=== PATIENT | female | born 1960 | race Caucasian/White ===

== ENCOUNTER 2016-07-20 09:02 | Inpatient (IN) | payer BC ==
--- NOTE | ~2016-07-20 | HP ---
Unit #: [id number] #: [id number] Patient: JUN VANG [id number] [address] [place], [place] [address] [id number] I MR#: [id number] NAME: JUN VANG ROOM: 05566 Age: 56 Sex: F Admission Date: 07/20/2016 : 1960 Attending Physician: Faisal Pickens M.D. Primary Care Physician: Kulwinder Montano M.D. HISTORY AND PHYSICAL HISTORY OF PRESENT ILLNESS This is a 56-year-old white female with history of breast cancer, status post lumpectomy, radiation therapy currently on tamoxifen, history of hypertension currently on no medication, history of osteoarthritis on Voltaren, started having lower abdominal cramps, bloody diarrhea about 2 weeks ago. She has had a prior colonoscopy times 2 with the last one being about 2 years ago, both normal. She called the GI specialist that she had seen in the past but was unable to get in for 3 weeks and actually has an appointment about 8 days out but her symptoms got worse and she presented herself to the emergency room. Here she was afebrile, tachycardic, initial hemoglobin was 12.7 but quickly dropped to 10.6. On review of systems, she has had no recent antibiotics. No recent ill contacts. No recent travel. She does have a father who has recently been in a rehab center so there is always possible exposure to infectious diseases from that center but she has had no fever. She has had some nausea but no vomiting. She is admitted for further evaluation. PAST MEDICAL HISTORY 1. History of hypertension. 2. Breast cancer. 3. Allergic rhinitis. 4. Osteoarthritis. PAST SURGICAL HISTORY 1. Nose surgery. 2. Tonsillectomy. 3. Lumpectomy. HOME MEDICATIONS 1. Tamoxifen 20 mg daily. 2. Diclofenac 75 mg b.i.d. ALLERGIES No known drug allergies. SOCIAL HISTORY Nonsmoker, nondrinker. No street drug use. . Employed part-time. FAMILY HISTORY Noncontributory. Unit #: [id number] #: [id number] Patient: JUN VANG PHYSICAL EXAMINATION VITAL SIGNS: Temperature afebrile, pulse originally 113, now 93; respirations 16, now 24; blood pressure times 1 was 128/64; O2 saturation 100% on room air. HEENT: Unremarkable. NECK: Supple without JVD, bruits, adenopathy, or thyromegaly. LUNGS: Clear to auscultation. HEART: Regular rate and rhythm without murmurs, rubs, or gallops. ABDOMEN: Soft, nondistended, nontender with positive bowel sounds and no hepatosplenomegaly. EXTREMITIES: No clubbing, cyanosis, or edema. : Deferred. RECTAL: Deferred. NEUROLOGIC: Grossly intact. DIAGNOSTIC STUDIES LABORATORY: CMP is normal except for albumin of 3.0 and a calcium of 8.3. CBC was normal with an original hemoglobin of 12.7 and then 10.6. IMPRESSION 1. Hematochezia. 2. Diarrhea. 3. Osteoarthritis. 4. History of hypertension. 5. History of breast cancer, status post lumpectomy and radiation therapy currently on tamoxifen. PLAN 1. Hold medications. 2. Consult Gastroenterology for endoscopy. 3. IV fluids. 4. IV Flagyl for possible infectious etiology. 5. Stool for C difficile toxin. 6. IV proton pump inhibitors in case this is an upper GI bleed but all her symptoms point to lower GI bleeding which may include but not limited to colitis, diverticulitis, colonic ulcer or even ischemic colitis because of her Voltaren. All discussed with the patient at length. 7. Ordered serial hemoglobin and hematocrit to call with hemoglobin less than 8 at which time she will be transfused. 8. Otherwise will follow up after endoscopy. Dictated by Ketty Santillan/ashvin TD: 07/20/2016 18:41 JOB #: [id number] Unit #: [id number] #: [id number] Patient: JUN VANG HISTORY AND PHYSICAL Page 1 of 1 X Faisal Pickens MD X HISTORY AND PHYSICAL
--- NOTE | ~2016-07-20 | OR ---
Unit #: [id number] #: [id number] Patient: JUN VANG [id number] [address] [place], [place] [address] [id number] I MR#: [id number] NAME: JUN VANG ROOM: 223 Date of Procedure: 07/21/2016 Admission Date: 07/20/2016 Surgeon: Joaquim Salinas M.D. : 1960 Attending Physician: Faisal Pickens M.D. Primary Care Physician: Kulwinder Montano M.D. OPERATIVE REPORT PRIMARY CARE PHYSICIAN Kulwinder Montano M.D. PREOPERATIVE DIAGNOSIS The patient presented with history of diarrhea with blood and mucus. PROCEDURES PERFORMED Upper gastrointestinal endoscopy and biopsy as well as colonoscopy with biopsies. POSTOPERATIVE DIAGNOSES 1. For upper endoscopy, completely normal examination up to third part of duodenum. Biopsies obtained from the deep descending duodenal folds to look for any evidence of partial villous atrophy or celiac disease. 2. For colonoscopy, the patient had diffuse ulcerative pancolitis with continuous symmetric involvement from rectosigmoid all the way up to cecum without any skip areas. There was diffuse granularity, ulceration, and friability throughout the entire colon. Biopsies obtained from the entire colonic mucosa and sent for histology in separate bottles. The terminal ileum was normal. RECOMMENDATIONS 1. We will obtain stool studies for enteric pathogens including Salmonella, Shigella, and Campylobacter as well as C diff toxin. 2. These are negative of the stool studies have been sent. The patient will be started on Solu-Medrol 80 mg IV q.6 hours. 3. We will obtain C-reactive protein, CBC, and CMP in the morning. 4. Diet as tolerated. SEDATION USED MAC. DESCRIPTION OF PROCEDURE Following detailed explanation of potential risks and complications of an upper endoscopy and a colonoscopy, namely perforation, bleeding, and complications related to sedation, the patient was brought to the GI lab and laid in the left lateral decubitus position. Lubricated tip of the Olympus video upper endoscope was passed through the bite block into the proximal esophagus under direct vision. The entire esophageal mucosa was examined and appeared normal. Z-line was nicely demarcated, there being no esophagitis or hiatus hernia. The scope was then advanced into the gastric cavity and the latter was insufflated. Mucosa of the fundus, Unit #: [id number] #: [id number] Patient: SPRINKLE,JUN body, and antrum examined and appeared unremarkable. Pylorus was intubated with visualization of normal duodenum bulb and second and third part of the duodenum. Upon withdrawal and retroflexion, incisura, cardia, and greater curve examined and no additional findings noted. Biopsies were obtained from the deep descending duodenal folds to look for any evidence of partial villous atrophy or celiac disease. The scope was then withdrawn the distal esophagus. The entire esophageal mucosa was examined all the way up to pharynx and no additional findings noted. The examination table was then turned by 180 degrees and the patient positioned for a colonoscopy. A digital rectal examination was performed, which was normal. Lubricated tip of the Olympus video colonoscope was inserted through the anus and advanced under direct vision. The scope was advanced and passed up to sigmoid into descending colon. The patient was noted to have diffuse colitis from rectosigmoid all the way up to cecum. The scope tip was then navigated all the way up to cecum with visualization of the ileocecal valve and the appendiceal orifice. The changes of diffuse colitis were quite obvious with diffuse granularity, ulceration, friability, erythema. There was no cobblestoning and no skip areas. Last few inches of the terminal ileum also visualized after intubation of the ileocecal valve and appeared normal. Biopsies obtained from the terminal ileum as well as from the cecum and right colon, transverse colon, descending colon, and rectosigmoid and sent in separate bottles for histology. Successive segments of the colonic mucosa were examined upon withdrawal and no additional findings noted. The patient did not have any polyps nor any diverticula or hemorrhoids. The scope was then withdrawn. The patient returned to recovery area. The patient tolerated the procedure without any postprocedure complications. Dictated by... Ketty Jean TD: 07/23/2016 03:26 JOB #: [id number] OPERATIVE REPORT Page 1 of 1 X Joaquim Salinas MD X PROCEDURE OPERATIVE NOTE
--- NOTE | ~2016-07-20 | CO ---
Unit #: [id number] #: [id number] Patient: JUN ZARATE [id number] [address] [place], [place] [address] [id number] I MR#: [id number] NAME: JUN ZARATE ROOM: 223 Age: 56 Sex: F Admission Date: 07/20/2016 : 1960 Attending Physician: Faisal Pickens M.D. Primary Care Physician: Kulwinder Montano M.D. Consultation Date: 07/21/2016 CONSULTATION REPORT REASON FOR CONSULTATION Hematochezia and upper abdominal pain. HISTORY Ms. Zarate is a very pleasant 56-year-old white female. Patient was examined while is at the bedside. For the past several weeks she has been having intermittent episodes of bloody diarrhea, several times a day, up to 8-10 times a day, along with blood in the bowel movement. She also has nocturnal awakening, going to bathroom several times. She also mentions a history of cramping in the abdomen, mostly in the lower abdomen, but also points to the upper abdomen. But her appetite is unchanged and she denies any weight loss. There is no history of fever, chills, or rigors. She apparently has had two colonoscopies, the last one being about two years ago and this was normal. There is a history of colonic polyps in the past. PAST MEDICAL HISTORY Significant for history of hypertension, allergic rhinitis, osteoarthritis, and breast cancer. Previous surgeries include a lumpectomy, tonsillectomy and nose surgery. MEDICATIONS AT HOME Diclofenac and tamoxifen. ALLERGIES She has no known drug allergies. 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 Does not smoke or drink alcohol. . Lives at home. 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 FAMILY HISTORY Mother also had breast cancer. No family history of colon, pancreatic cancer of liver disease. REVIEW OF SYSTEMS A detailed review of organ system does not reveal any recent weight loss. No history of fevers, chills or rigors. No history of cough, expectoration, or hemoptysis. No history of dysuria, hematuria or pyuria. No history of focal seizures or extremity weakness. No history of skin rash, aphthous ulcers in the mouth or reactive arthritis. PHYSICAL EXAMINATION Unit #: [id number] #: [id number] Patient: JUN ZARATE GENERAL: She is alert and oriented, and appears comfortable. VITAL SIGNS: Stable. Temperature 98.9, pulse 92 per minute, respiratory rate 18, blood pressure 110/58. She weighs 144 pounds. Her baseline weight is about the same. HEENT: She has mild pallor, there being no icterus, lymphadenopathy or peripheral edema. CARDIOVASCULAR: Normal heart sounds. No murmurs on auscultation. LUNGS: Revealed normal breath sounds. Good air entry. ABDOMEN: Soft and nontender. Liver and spleen are not palpable, and bowel sounds normal. DIAGNOSTIC STUDIES LABORATORY EVALUATION: Shows a hemoglobin of 12.7 yesterday and 10.4 today, white count is normal and platelet count is normal. Serum chemistry shows a BUN and creatinine which are normal, albumin is 3.0. LFTs are normal. CLINICAL IMPRESSION The differential diagnosis here includes internal hemorrhoids, more likely ulcerative colitis, as patient is having frequent bowel movements, along with the bleeding. In view of the fact that her pain is present in the left and right lower abdomen, as well as in the epigastric ulcer, also suggest doing an upper endoscopy at this same time, as colonoscopy is being performed. The pros and cons of the procedures, and potential risks and complications were discussed with the patient and she was reassured. Thank you for asking me to see this pleasant male. Dictated by... Ketty Jean TD: 07/21/2016 12:12 JOB #: [id number] CONSULTATION REPORT Page 1 of 1 X Joaquim Salinas MD CONSULTATION REPORT
--- NOTE | ~2016-07-20 | DS ---
Unit #: [id number] #: [id number] Patient: JUN VANG [id number] [address] [place], [place] [address] [id number] I MR#: [id number] NAME: JUN VANG ROOM: 223 Age: 56 Sex: F Admission Date: 07/20/2016 : 1960 Discharge Date: 07/23/2016 Attending Physician: Faisal Pickens M.D. Primary Care Physician: Kulwinder Montano M.D. DISCHARGE SUMMARY PRINCIPAL DISCHARGE DIAGNOSES 1. Moderate to severe ulcerative pancolitis. 2. Hematochezia secondary to number one. 3. Anemia. 4. Osteoarthritis. 5. History of breast cancer. 6. Hyperglycemia, likely secondary to steroids. 7. History of hypertension. Currently on no treatment for same. PROCEDURES PERFORMED Colonoscopy with biopsy on 07/21/2016. CONSULTANTS Dr. Joaquim Salinas. REASON FOR HOSPITALIZATION The patient is a 56-year-old white female with a history of breast cancer, status post lumpectomy, radiation, on tamoxifen. History of hypertension, currently on no medications. History of arthritis on Voltaren. The patient presented with lower abdominal cramps, bloody diarrhea for about two weeks. She had had a prior colonoscopy times two, the last one being about two years ago, both being normal. In the emergency room she was afebrile and tachycardic. Initial hemoglobin was 12.7, but quickly dropped to 10.6 and she was admitted. HOSPITAL COURSE The patient was made n.p.o. She was started on IV Flagyl. Stool for c-diff was ordered. Serial hemoglobin and hematocrit were followed. She was started on an IV proton pump inhibitor, SCDs for DVT prophylaxis. GI was consulted. The patient underwent endoscopy on the fourth, showing pancolitis. Biopsies were obtained, but still pending at the time of dictation. C-reactive protein was 2.1. Hemoglobin fell to about 10.5 and stayed stable thereafter. She had a random blood sugar on the . Hemoglobin A1C was checked and it was 5.4. In any case, her endoscopy showed fink colitis as mentioned above. Stool for Shigatoxin was negative. Stool for campylobacter negative. Stool for c-diff toxin negative. The patient was treated with IV Flagyl, IV Solu-Medrol, markedly improved. Hemoglobin stable. Vital signs stable. DISPOSITION Being discharged home. DISCHARGE MEDICATION 1. It is okay to resume her Tamoxifen, but hold the Voltaren. Unit #: [id number] #: [id number] Patient: JUN VANG 2. She was given prescriptions for Flagyl 500 mg t.i.d. for 5 days, prednisone 40 mg for 10 days, 30 mg for 10 days, 20 mg for 10 days and then 10 mg for 10 days. 3. Prescription for Asacol 400 mg 3 tablets p.o. t.i.d. To start on 07/31/2016. FOLLOWUP 1. She needs a followup with Dr. Montano in one week from discharge with a CBC. 2. She is to follow up with Dr. Salinas on Wednesday at 2:30 p.m. Dictated by... Faisal Pickens M.D. PIPOK/amarilis TD: 07/24/2016 08:14 JOB #: [id number] DISCHARGE SUMMARY Page 1 of 1 X Faisal Pickens MD X DISCHARGE SUMMARY
[2016-07-20 08:25] LABS: BASOPHIL% 0.3 % (0-2.5); EOSINOPHIL# 0.9 X10e3 (0-0.7); HEMATOCRIT 38.4 % (35.0-45.0); HEMOGLOBIN 12.7 gm/dL (12.0-16.0); LYMPHOCYTE# 0.7 X10e3 (1.0-3.5); LYMPHOCYTE% 8.6 % (17.0-45.0); MEAN CELL VOLUME 93.7 FL (83-96); MEAN CORPUSCULAR HEMOGLOBIN 30.9 PG (28-34); MEAN PLATELET VOLUME 6.6 FL (6.5-11.5); MONOCYTE# 0.8 X10e3 (0-1.0); MONOCYTE% 9.9 % (3.0-12.0); NEUTROPHIL% 70.2 % (40-75); PLATELET COUNT 410 X10e3 (140-420); RED CELL DISTRIBUTION WIDTH 13.2 % (11.0-15.5); WHITE BLOOD COUNT 8.5 X10e3 (4.0-10.5)
[2016-07-20 08:28] LABS: DIFF IND NO
[2016-07-20 08:49] LABS: BILIRUBIN, DIRECT 0.1 mg/dL (0.0-0.2); BILIRUBIN,INDIRECT 0.5 mg/dL (0.0-0.9); BILIRUBIN,TOTAL 0.6 mg/dL (0.2-2.0); CALCIUM SERUM 8.3 mg/dL (8.4-10.2); CREATININE SERUM 0.7 mg/dL (0.6-1.4); GLOM FILT RATE Estimated 95.5 mL/min (>60); POTASSIUM 3.8 mmol/L (3.5-5.1); PROTEIN TOTAL SERUM 6.3 g/dL (6.0-8.3)
[~2016-07-20 09:02] MED LIST: ALLEGRA PO; ASPIRINEC PO; DIOVAN HCT 80/11 TAB PO; STAHIST TA1 TAB.SR . PO
[2016-07-20 10:34] LABS: HEMATOCRIT 32.4 % (35.0-45.0)
[2016-07-20 10:37] LABS: HEMOGLOBIN 10.6 gm/dL (12.0-16.0)
[2016-07-20] MEDS ORDERED: TAMOXIFEN CITRA20 MG PO (12:10)
[2016-07-20] MEDS ORDERED: VOLTAREN75 MG PO (12:11)
[2016-07-20 18:28] LABS: HEMATOCRIT 33.4 % (35.0-45.0); HEMOGLOBIN 11.2 gm/dL (12.0-16.0)
[2016-07-21 02:44] LABS: HEMATOCRIT 30.6 % (35.0-45.0); HEMOGLOBIN 10.5 gm/dL (12.0-16.0)
[2016-07-21 03:43] LABS: BUN/CREATININE RATIO 13.75; CALCIUM SERUM 7.7 mg/dL (8.4-10.2); CREATININE SERUM 0.8 mg/dL (0.6-1.4); GLOM FILT RATE Estimated 81.3 mL/min (>60); POTASSIUM 4.1 mmol/L (3.5-5.1)
[2016-07-21 10:24] LABS: HEMATOCRIT 33.9 % (35.0-45.0); HEMOGLOBIN 11.2 gm/dL (12.0-16.0)
[2016-07-21 18:10] LABS: HEMATOCRIT 35.8 % (35.0-45.0)
[2016-07-22 06:42] LABS: HEMATOCRIT 32.3 % (35.0-45.0); HEMOGLOBIN 10.9 gm/dL (12.0-16.0); MEAN CELL VOLUME 93.8 FL (83-96); MEAN CORPUSCULAR HEMOGLOBIN 31.7 PG (28-34); MEAN CORPUSCULAR HGB CONC 33.8 g/dL (30-36); MEAN PLATELET VOLUME 7.1 FL (6.5-11.5); RED BLOOD COUNT 3.45 X10e (3.90-5.30); WHITE BLOOD COUNT 7.8 X10e3 (4.0-10.5)
[2016-07-22 07:24] LABS: ALBUMIN SERUM 2.4 g/dL (3.5-5.0); BILIRUBIN,TOTAL 0.3 mg/dL (0.2-2.0); BUN/CREATININE RATIO 13.75; CALCIUM SERUM 7.7 mg/dL (8.4-10.2); CREATININE SERUM 0.8 mg/dL (0.6-1.4); GLOM FILT RATE Estimated 81.3 mL/min (>60); POTASSIUM 3.7 mmol/L (3.5-5.1); PROTEIN TOTAL SERUM 5.5 g/dL (6.0-8.3)
[2016-07-23 05:37] LABS: HEMATOCRIT 32.1 % (35.0-45.0); HEMOGLOBIN 10.5 gm/dL (12.0-16.0); MEAN CELL VOLUME 93.7 FL (83-96); MEAN CORPUSCULAR HEMOGLOBIN 30.8 PG (28-34); MEAN CORPUSCULAR HGB CONC 32.9 g/dL (30-36); RED BLOOD COUNT 3.42 X10e (3.90-5.30); RED CELL DISTRIBUTION WIDTH 13.3 % (11.0-15.5)
[2016-07-23 06:14] LABS: WHITE BLOOD COUNT 12.3 X10e3 (4.0-10.5)
[2016-07-23 06:26] LABS: ALBUMIN SERUM 2.3 g/dL (3.5-5.0); BILIRUBIN,TOTAL 0.3 mg/dL (0.2-2.0); CALCIUM SERUM 7.9 mg/dL (8.4-10.2); CREATININE SERUM 0.6 mg/dL (0.6-1.4); GLOM FILT RATE Estimated 100.5 mL/min (>60); POTASSIUM 4.2 mmol/L (3.5-5.1); PROTEIN TOTAL SERUM 5.2 g/dL (6.0-8.3)
[2016-07-23] MEDS ORDERED: PREDNISONE (17:05)
[2016-07-23] MEDS ORDERED: FLAGYL PO (17:12)
[2016-07-23] MEDS ORDERED: ASACOL PO (17:12)
== END 2016-07-23 17:41 | disposition home or self-care (01) | DRG 387 ==
LOC: CED 09:02 → CEDOF 09:45 → C2A 19:33
PROVIDERS: Emergency Medicine; Internal Medicine; Internal Medicine Gastroenterology
PROC: 0DBL8ZX Excision of Transverse Colon, Via Natural or Artificial Opening Endoscopic, Diagnostic (ICD-10-PCS; 2016-07-21)
PROC: 0DBH8ZX Excision of Cecum, Via Natural or Artificial Opening Endoscopic, Diagnostic (ICD-10-PCS; 2016-07-21)
PROC: 0DBB8ZX Excision of Ileum, Via Natural or Artificial Opening Endoscopic, Diagnostic (ICD-10-PCS; 2016-07-21)
PROC: 0DB98ZX Excision of Duodenum, Via Natural or Artificial Opening Endoscopic, Diagnostic (ICD-10-PCS; 2016-07-21)
PROC: 0DBF8ZX Excision of Right Large Intestine, Via Natural or Artificial Opening Endoscopic, Diagnostic (ICD-10-PCS; principal; 2016-07-21 15:00)
PROC: 0DBN8ZX Excision of Sigmoid Colon, Via Natural or Artificial Opening Endoscopic, Diagnostic (ICD-10-PCS; 2016-07-21 15:00)
PROC: 0DBM8ZX Excision of Descending Colon, Via Natural or Artificial Opening Endoscopic, Diagnostic (ICD-10-PCS; 2016-07-21 15:00)
DX: K51.011 Ulcerative (chronic) pancolitis with rectal bleeding (principal); I10 Essential (primary) hypertension; D64.9 Anemia, unspecified; M19.90 Unspecified osteoarthritis, unspecified site; R73.9 Hyperglycemia, unspecified; T38.0X5A Adverse effect of glucocorticoids and synthetic analogues, initial encounter; Y92.230 Patient room in hospital as the place of occurrence of the external cause; Z85.3 Personal history of malignant neoplasm of breast; Z92.3 Personal history of irradiation; Z80.3 Family history of malignant neoplasm of breast
CPT/HCPCS: 36415; 80048; 80053; 80076; 83036; 85014; 85018; 85025; 85027; 86140; 86850; 86900; 86901; 87045; 87427; 87493; 87899; 88305; 99285; C9113; J2250; J2405; J2930

== ENCOUNTER → 2016-10-14 | Outpatient (CLI) | payer BC ==
[~2016-10-14] MED LIST changes: +ASACOL PO; +FLAGYL PO; +PREDNISONE; +TAMOXIFEN CITRA20 MG PO; +VOLTAREN75 MG PO
[2016-10-14 09:23] LABS: HEMATOCRIT 36.8 % (35.0-45.0); HEMOGLOBIN 11.8 gm/dL (12.0-16.0); MEAN CELL VOLUME 90.5 FL (83-96); MEAN CORPUSCULAR HEMOGLOBIN 29.1 PG (28-34); MEAN CORPUSCULAR HGB CONC 32.1 g/dL (30-36); MEAN PLATELET VOLUME 6.4 FL (6.5-11.5); RED BLOOD COUNT 4.07 X10e (3.90-5.30); RED CELL DISTRIBUTION WIDTH 12.6 % (11.0-15.5); WHITE BLOOD COUNT 12.8 X10e3 (4.0-10.5)
[2016-10-14 10:29] LABS: ALBUMIN SERUM 2.6 g/dL (3.5-5.0); BILIRUBIN,TOTAL 0.3 mg/dL (0.2-2.0); BUN/CREATININE RATIO 17.5; CALCIUM SERUM 8.8 mg/dL (8.4-10.2); CREATININE SERUM 0.8 mg/dL (0.6-1.4); GLOM FILT RATE Estimated 81.3 mL/min (>60); POTASSIUM 3.8 mmol/L (3.5-5.1); PROTEIN TOTAL SERUM 5.9 g/dL (6.0-8.3)
== END | disposition home or self-care (01) ==
LOC: CLAB 08:51
PROVIDERS: Nurse Practitioner
DX: K92.1 Melena (principal)
CPT/HCPCS: 36415; 80053; 85027

== ENCOUNTER → 2016-10-27 | Outpatient (CLI) | payer BC ==
[2016-10-27 08:09] LABS: BASOPHIL# 0.1 X10e3 (0-0.3); BASOPHIL% 0.6 % (0-2.5); EOSINOPHIL% 0.2 % (0.0-7.0); HEMATOCRIT 37.8 % (35.0-45.0); HEMOGLOBIN 12.1 gm/dL (12.0-16.0); LYMPHOCYTE# 0.6 X10e3 (1.0-3.5); LYMPHOCYTE% 6.7 % (17.0-45.0); MEAN CELL VOLUME 92.5 FL (83-96); MEAN CORPUSCULAR HEMOGLOBIN 29.6 PG (28-34); MEAN PLATELET VOLUME 6.3 FL (6.5-11.5); MONOCYTE# 0.2 X10e3 (0-1.0); MONOCYTE% 2.7 % (3.0-12.0); NEUTROPHIL# 8.2 X10e3 (1.5-7.1); NEUTROPHIL% 89.8 % (40-75); PLATELET COUNT 417 X10e3 (140-420); RED BLOOD COUNT 4.09 X10e (3.90-5.30); RED CELL DISTRIBUTION WIDTH 14.3 % (11.0-15.5); WHITE BLOOD COUNT 9.1 X10e3 (4.0-10.5)
[2016-10-27 08:10] LABS: DIFF IND NO
[2016-10-27 09:01] LABS: ALBUMIN SERUM 3.2 g/dL (3.5-5.0); BILIRUBIN,TOTAL 0.4 mg/dL (0.2-2.0); BUN/CREATININE RATIO 31.25; CALCIUM SERUM 9.3 mg/dL (8.4-10.2); CREATININE SERUM 0.8 mg/dL (0.6-1.4); GLOM FILT RATE Estimated 81.3 mL/min (>60); POTASSIUM 3.6 mmol/L (3.5-5.1); PROTEIN TOTAL SERUM 6.6 g/dL (6.0-8.3)
== END | disposition home or self-care (01) ==
LOC: CLAB 07:48
PROVIDERS: Nurse Practitioner
DX: K92.1 Melena (principal)
CPT/HCPCS: 36415; 80053; 85025

== ENCOUNTER → 2016-11-10 | Outpatient (CLI) | payer BC ==
[2016-11-10 11:49] LABS: BASOPHIL% 0.3 % (0-2.5); EOSINOPHIL% 0.2 % (0.0-7.0); HEMATOCRIT 38.6 % (35.0-45.0); LYMPHOCYTE# 0.5 X10e3 (1.0-3.5); LYMPHOCYTE% 7.3 % (17.0-45.0); MEAN CELL VOLUME 92.6 FL (83-96); MEAN CORPUSCULAR HEMOGLOBIN 31.2 PG (28-34); MEAN CORPUSCULAR HGB CONC 33.7 g/dL (30-36); MEAN PLATELET VOLUME 6.4 FL (6.5-11.5); MONOCYTE# 0.2 X10e3 (0-1.0); MONOCYTE% 2.6 % (3.0-12.0); NEUTROPHIL# 6.4 X10e3 (1.5-7.1); NEUTROPHIL% 89.6 % (40-75); PLATELET COUNT 346 X10e3 (140-420); RED BLOOD COUNT 4.16 X10e (3.90-5.30); RED CELL DISTRIBUTION WIDTH 16.3 % (11.0-15.5); WHITE BLOOD COUNT 7.1 X10e3 (4.0-10.5)
[2016-11-10 11:50] LABS: DIFF IND NO
[2016-11-10 12:50] LABS: ALBUMIN SERUM 3.8 g/dL (3.5-5.0); BILIRUBIN,TOTAL 0.6 mg/dL (0.2-2.0); BUN/CREATININE RATIO 14.44; CALCIUM SERUM 9.8 mg/dL (8.4-10.2); CREATININE SERUM 0.9 mg/dL (0.6-1.4); GLOM FILT RATE Estimated 70.5 mL/min (>60); POTASSIUM 4.4 mmol/L (3.5-5.1); PROTEIN TOTAL SERUM 7.2 g/dL (6.0-8.3)
== END | disposition home or self-care (01) ==
LOC: CLAB 11:08
PROVIDERS: Nurse Practitioner
DX: K92.1 Melena (principal)
CPT/HCPCS: 36415; 80053; 85025

== ENCOUNTER → 2016-11-26 | Outpatient (CLI) | payer BC ==
[2016-11-26 09:08] LABS: BASOPHIL# 0.1 X10e3 (0-0.3); BASOPHIL% 1.2 % (0-2.5); EOSINOPHIL# 0.3 X10e3 (0-0.7); EOSINOPHIL% 4.6 % (0.0-7.0); HEMATOCRIT 38.4 % (35.0-45.0); HEMOGLOBIN 12.7 gm/dL (12.0-16.0); LYMPHOCYTE# 0.6 X10e3 (1.0-3.5); LYMPHOCYTE% 11.4 % (17.0-45.0); MEAN CELL VOLUME 92.8 FL (83-96); MEAN CORPUSCULAR HEMOGLOBIN 30.7 PG (28-34); MEAN PLATELET VOLUME 6.7 FL (6.5-11.5); MONOCYTE# 0.4 X10e3 (0-1.0); MONOCYTE% 7.7 % (3.0-12.0); NEUTROPHIL# 4.2 X10e3 (1.5-7.1); NEUTROPHIL% 75.1 % (40-75); PLATELET COUNT 410 X10e3 (140-420); RED BLOOD COUNT 4.13 X10e (3.90-5.30); RED CELL DISTRIBUTION WIDTH 17.4 % (11.0-15.5); WHITE BLOOD COUNT 5.6 X10e3 (4.0-10.5)
[2016-11-26 09:10] LABS: DIFF IND NO
[2016-11-26 09:42] LABS: ALBUMIN SERUM 3.4 g/dL (3.5-5.0); BILIRUBIN,TOTAL 0.4 mg/dL (0.2-2.0); BUN/CREATININE RATIO 16.66; CALCIUM SERUM 8.8 mg/dL (8.4-10.2); CREATININE SERUM 0.9 mg/dL (0.6-1.4); GLOM FILT RATE Estimated 70.5 mL/min (>60); POTASSIUM 3.6 mmol/L (3.5-5.1); PROTEIN TOTAL SERUM 6.9 g/dL (6.0-8.3)
== END | disposition home or self-care (01) ==
LOC: CLAB 08:51
PROVIDERS: Nurse Practitioner
DX: K92.1 Melena (principal)
CPT/HCPCS: 36415; 80053; 85025

== ENCOUNTER → 2016-12-09 | Outpatient (CLI) | payer BC ==
[2016-12-09 10:06] LABS: HEMOGLOBIN 12.2 gm/dL (12.0-16.0); MEAN CORPUSCULAR HEMOGLOBIN 31.1 PG (28-34); MEAN CORPUSCULAR HGB CONC 33.8 g/dL (30-36); MEAN PLATELET VOLUME 6.6 FL (6.5-11.5); RED BLOOD COUNT 3.91 X10e (3.90-5.30); WHITE BLOOD COUNT 4.4 X10e3 (4.0-10.5)
[2016-12-09 10:49] LABS: ALBUMIN SERUM 3.4 g/dL (3.5-5.0); BILIRUBIN,TOTAL 0.4 mg/dL (0.2-2.0); CALCIUM SERUM 9.2 mg/dL (8.4-10.2); CREATININE SERUM 0.8 mg/dL (0.6-1.4); GLOM FILT RATE Estimated 81.3 mL/min (>60); POTASSIUM 4.2 mmol/L (3.5-5.1); PROTEIN TOTAL SERUM 6.9 g/dL (6.0-8.3)
== END | disposition home or self-care (01) ==
LOC: CLAB 09:28
PROVIDERS: Nurse Practitioner
DX: K92.1 Melena (principal)
CPT/HCPCS: 36415; 80053; 85027